=== PATIENT | female | born 1980 | race Caucasian/White ===

== ENCOUNTER 2019-05-08 19:35 | Emergency (ER) | payer MEDICAID ==
[~2019-05-08] VITALS: Ht 165.1 cm; Wt 131.0 kg
[~2019-05-08 19:35] MED LIST: AZIT250T PO; DIT5T PO; ONDA4TAB59 PO; ONDA4TAB6 PO; ONDA8TAB6 PO
[2019-05-08 19:58] LABS: URINE HCG POSITIVE (NEG)
[2019-05-08 20:00] LABS: CLARITY,URINE CLEAR (Clear); COLOR,URINE YELLOW (Yellow); GLUCOSE, URINE NEGATIVE (Neg); KETONES,URINE TRACE mg/dl (Neg); LEUKOCYTE ESTERASE ,URINE NEGATIVE (Neg); NITRITES, URINE NEGATIVE (Neg); OCCULT BLOOD,URINE NEGATIVE (Neg); PROTEIN,URINE NEGATIVE (Neg)
[2019-05-08 20:03] LABS: UA COLLECTION TYPE VOIDED
[2019-05-08] MEDS ORDERED: ondansetron/PF 4mg/2ml inj IV ONE ×2 (20:10→21:25)
[2019-05-08] MEDS ORDERED: morphine 4 MG/ML inj SYRINge IV PRN (20:10)
[2019-05-08] MEDS ORDERED: normal saline 1000ML IV soln IVB ONE (20:10)
[2019-05-08 20:52] LABS: BASOPHILS # (AUTO) 0.1 X10'3 (0-0.2); BASOPHILS % (AUTO) 0.8 % (0-1); EOSINOPHILS # (AUTO) 0.1 X10'3 (0-0.9); EOSINOPHILS % (AUTO) 0.8 % (0-6); HEMATOCRIT 36.4 % (35.0-45.0); LYMPHOCYTES # (AUTO) 2.4 X10'3 (1.1-4.8); LYMPHOCYTES % (AUTO) 20.1 % (21-51); MEAN CORPUSCULAR HEMOGLOBIN 26.4 PG (27.0-31.0); MEAN CORPUSCULAR HGB CONC 33.1 g/dL (33.0-36.5); MEAN CORPUSCULAR VOLUME 79.7 FL (78-98); MEAN PLATELET VOLUME 7.3 FL (7.4-10.4); MONOCYTES # (AUTO) 0.8 X10'3 (0-0.9); NEUTROPHILS # (AUTO) 8.4 X10'3 (1.8-7.7); NEUTROPHILS % (AUTO) 71.3 % (42-75); PLATELET COUNT 392 X10'3 (140-440); RED BLOOD COUNT 4.56 X10'6 (4.20-5.60); RED CELL DISTRIBUTION WIDTH 16.2 % (11.5-14.5); WHITE BLOOD COUNT 11.8 X10'3 (4.5-11.0)
[2019-05-08 21:01] LABS: ALANINE AMINOTRANSFERASE 17 U/L (12-78); ALBUMIN/GLOBULIN RATIO 0.7 (1.1-1.5); ALKALINE PHOSPHATASE 80 IU/L (46-116); ANION GAP 6 (8-16); ASPARTATE AMINO TRANSFERASE 16 U/L (10-37); BILIRUBIN,TOTAL 0.2 MG/DL (0.1-1.0); BLOOD UREA NITROGEN 13 MG/DL (7-18); BUN/CREATININE RATIO 10.5 (6.6-38.0); CALCIUM 9.2 MG/DL (8.5-10.1); CHLORIDE 103 MMOL/L (99-107); CREATININE 1.24 MG/DL (0.40-0.90); GLUCOSE 86 MG/DL (70-104); LIPASE 179 U/L (73-393); POTASSIUM 3.8 MMOL/L (3.5-5.1); SODIUM 136 MMOL/L (135-145); TOTAL CARBON DIOXIDE 26.9 MMOL/L (24-32); TOTAL PROTEIN 7.4 G/DL (6.4-8.2); eGFR 48 ML/MIN
[2019-05-08] MEDS ORDERED: HYDR-3965 PO (21:22)
[2019-05-08] MEDS ORDERED: morphine 4 MG/ML inj SYRINge IV ONE (21:25)
[2019-05-08] MEDS ORDERED: ONDA4TAB6 PO (22:03)
[2019-05-08 22:08] VITALS: BP 125/70
== END 2019-05-08 22:09 | disposition home or self-care (01) ==
LOC: ER 19:36
DX: O26.891 Other specified pregnancy related conditions, first trimester (principal); R10.9 Unspecified abdominal pain; J45.909 Unspecified asthma, uncomplicated; F41.9 Anxiety disorder, unspecified; F32.9 Major depressive disorder, single episode, unspecified; Z90.49 Acquired absence of other specified parts of digestive tract; Z98.890 Other specified postprocedural states; Z88.0 Allergy status to penicillin; Z88.1 Allergy status to other antibiotic agents; Z88.5 Allergy status to narcotic agent; Z88.8 Allergy status to other drugs, medicaments and biological substances; Z79.2 Long term (current) use of antibiotics; Z79.899 Other long term (current) drug therapy; Z87.442 Personal history of urinary calculi; Z93.6 Other artificial openings of urinary tract status; Z3A.09 9 weeks gestation of pregnancy
CPT/HCPCS: 36415; 80053; 81003; 81025; 83690; 85025; 96374; 96375; 96376; 99284; J2270; J2405; J7030

== ENCOUNTER 2020-12-30 13:56 | Emergency (ER) | payer MEDICAID ==
[~2020-12-30] VITALS: Ht 165.1 cm; Wt 168.0 kg
[2020-12-30 14:31] VITALS: BP 194/95
[2020-12-30 15:33] LABS: BASOPHILS # (AUTO) 0.1 X10'3 (0-0.2); EOSINOPHILS # (AUTO) 0.1 X10'3 (0-0.9); HEMATOCRIT 43.8 % (35.0-45.0); HEMOGLOBIN 14.7 g/dl (12.0-16.0); LYMPHOCYTES # (AUTO) 2.4 X10'3 (1.1-4.8); MEAN CORPUSCULAR HEMOGLOBIN 28.5 PG (27.0-31.0); MEAN CORPUSCULAR HGB CONC 33.5 g/dL (33.0-36.5); MEAN PLATELET VOLUME 6.9 FL (7.4-10.4); MONOCYTES # (AUTO) 0.5 X10'3 (0-0.9); MONOCYTES % (AUTO) 8.1 % (2-12); NEUTROPHILS # (AUTO) 3.7 X10'3 (1.8-7.7); NEUTROPHILS % (AUTO) 53.9 % (42-75); PLATELET COUNT 358 X10'3 (140-440); RED BLOOD COUNT 5.16 X10'6 (4.20-5.60); RED CELL DISTRIBUTION WIDTH 15.1 % (11.5-14.5); WHITE BLOOD COUNT 6.8 X10'3 (4.5-11.0)
[2020-12-30] MEDS ORDERED: acetaminophen 325mg tablet PO ONE (15:55)
[2020-12-30 15:57] LABS: ALANINE AMINOTRANSFERASE 40 U/L (12-78); ALBUMIN 3.5 G/DL (3.4-5.0); ALBUMIN/GLOBULIN RATIO 0.9 (1.1-1.5); ALKALINE PHOSPHATASE 92 IU/L (46-116); ANION GAP 8 (8-16); ASPARTATE AMINO TRANSFERASE 29 U/L (10-37); BILIRUBIN,TOTAL 0.4 MG/DL (0.1-1.0); BLOOD UREA NITROGEN 13 MG/DL (7-18); BUN/CREATININE RATIO 10.7 (6.6-38.0); CALCIUM 9.2 MG/DL (8.5-10.1); CHLORIDE 106 MMOL/L (99-107); CREATININE 1.21 MG/DL (0.40-0.90); GLUCOSE 107 MG/DL (70-104); LIPASE 125 U/L (73-393); POTASSIUM 4.2 MMOL/L (3.5-5.1); SODIUM 141 MMOL/L (135-145); TOTAL CARBON DIOXIDE 27.4 MMOL/L (24-32); TOTAL PROTEIN 7.6 G/DL (6.4-8.2); eGFR 49 ML/MIN
[2020-12-30 16:05] LABS: UA COLLECTION TYPE CLN CATCH MIDSTREAM
[2020-12-30 16:06] LABS: CLARITY,URINE CLOUDY (Clear); COLOR,URINE YELLOW (Yellow); GLUCOSE, URINE NEGATIVE (Neg); PROTEIN,URINE 30 mg/dl (Neg)
[2020-12-30 16:07] LABS: KETONES,URINE NEGATIVE (Neg); LEUKOCYTE ESTERASE ,URINE SMALL (Neg); NITRITES, URINE NEGATIVE (Neg); OCCULT BLOOD,URINE LARGE (Neg); UROBILINOGEN,URINE 0.2 E.U/dL (0.2-1.0)
[2020-12-30 16:19] LABS: URINE HCG NEGATIVE (NEG)
--- NOTE | 2020-12-30 16:24 | NUR ---
MEDICAL RECORD RELEASE FAXED TO [facility]
[2020-12-30 16:31] LABS: RBC,URINE 50-100 /HPF (0-2); WBC,URINE TNTC /HPF (0-4)
[2020-12-30 16:32] LABS: MUCUS STRANDS FEW /LPF (Neg); SQUAMOUS EPITHELIAL CELL,UR MANY /LPF (FEW); TRANSITIONAL EPI CELLS,URINE FEW /HPF
[2020-12-30 16:37] LABS: AMORPHOUS URATES 1+; BACTERIA,URINE 1+ /HPF (Neg)
[2020-12-30] MEDS ORDERED: HYDROcodone/acetaminophen 5mg/325mg tablet PO ONE (17:40)
[2020-12-30] MEDS ORDERED: ondansetron 4mg rapidly disintigrating tab PO ONE (17:50)
[2020-12-30] MEDS ORDERED: LEVO750T46 PO (19:30)
== END 2020-12-30 19:45 | disposition home or self-care (01) ==
LOC: ER 13:57
DX: N10 Acute pyelonephritis (principal); Z95.5 Presence of coronary angioplasty implant and graft; Z87.440 Personal history of urinary (tract) infections; J45.909 Unspecified asthma, uncomplicated; Z87.01 Personal history of pneumonia (recurrent); Z87.442 Personal history of urinary calculi; Z90.49 Acquired absence of other specified parts of digestive tract; Z98.891 History of uterine scar from previous surgery; Z88.0 Allergy status to penicillin; Z88.1 Allergy status to other antibiotic agents; Z88.5 Allergy status to narcotic agent; Z88.6 Allergy status to analgesic agent; Z91.041 Radiographic dye allergy status; Z88.8 Allergy status to other drugs, medicaments and biological substances; Z79.2 Long term (current) use of antibiotics; Z79.899 Other long term (current) drug therapy
CPT/HCPCS: 36415; 74176; 80053; 81001; 81025; 83690; 85025; 99284

== ENCOUNTER 2021-01-25 09:33 | Emergency (ER) | payer MEDICAID ==
[~2021-01-25] VITALS: Ht 162.6 cm; Wt 159.1 kg
[2021-01-25 09:36] VITALS: BP 206/126
[2021-01-25] MEDS ORDERED: TETanus/Pertussis (Acell)/Diphther VAC/PF (Tdap-Adult) 0.5ml syringe IMVAC ONE (15:10)
[2021-01-25] MEDS ORDERED: HYDROcodone/acetaminophen 5mg/325mg tablet PO ONE (15:15)
[2021-01-25] MEDS ORDERED: CEPH250T PO (15:49)
[2021-01-25] MEDS ORDERED: HYDR-3965 PO (15:49)
== END 2021-01-25 16:33 | disposition home or self-care (01) ==
LOC: ER 09:34
DX: L03.011 Cellulitis of right finger (principal); M79.644 Pain in right finger(s); J45.909 Unspecified asthma, uncomplicated; F41.9 Anxiety disorder, unspecified; F32.9 Major depressive disorder, single episode, unspecified; Z20.3 Contact with and (suspected) exposure to rabies; Z87.01 Personal history of pneumonia (recurrent); Z87.442 Personal history of urinary calculi; Z87.440 Personal history of urinary (tract) infections; Z90.49 Acquired absence of other specified parts of digestive tract; Z98.890 Other specified postprocedural states; Z88.0 Allergy status to penicillin; Z88.1 Allergy status to other antibiotic agents; Z88.8 Allergy status to other drugs, medicaments and biological substances; Z79.2 Long term (current) use of antibiotics; Z79.899 Other long term (current) drug therapy
CPT/HCPCS: 10060; 90471; 90715; 99283

== ENCOUNTER 2021-09-25 14:22 | Emergency (ER) | payer MEDICAID ==
[~2021-09-25] VITALS: Ht 165.1 cm; Wt 159.1 kg
[2021-09-25 15:41] LABS: BASOPHILS % (AUTO) 0.5 % (0-1); EOSINOPHILS # (AUTO) 0.1 X10'3 (0-0.9); EOSINOPHILS % (AUTO) 1.2 % (0-6); HEMATOCRIT 38.9 % (35.0-45.0); HEMOGLOBIN 12.9 g/dl (12.0-16.0); LYMPHOCYTES # (AUTO) 1.3 X10'3 (1.1-4.8); LYMPHOCYTES % (AUTO) 16.1 % (21-51); MEAN CORPUSCULAR HEMOGLOBIN 28.8 PG (27.0-31.0); MEAN CORPUSCULAR HGB CONC 33.2 g/dL (33.0-36.5); MEAN CORPUSCULAR VOLUME 86.5 FL (78-98); MEAN PLATELET VOLUME 7.3 FL (7.4-10.4); MONOCYTES # (AUTO) 0.5 X10'3 (0-0.9); MONOCYTES % (AUTO) 5.9 % (2-12); NEUTROPHILS # (AUTO) 6.3 X10'3 (1.8-7.7); NEUTROPHILS % (AUTO) 76.3 % (42-75); PLATELET COUNT 317 X10'3 (140-440); RED BLOOD COUNT 4.49 X10'6 (4.20-5.60); RED CELL DISTRIBUTION WIDTH 14.6 % (11.5-14.5); WHITE BLOOD COUNT 8.3 X10'3 (4.5-11.0)
[2021-09-25 15:57] LABS: ALANINE AMINOTRANSFERASE 32 U/L (12-78); ALBUMIN 2.9 G/DL (3.4-5.0); ALBUMIN/GLOBULIN RATIO 0.8 (1.1-1.5); ALKALINE PHOSPHATASE 85 IU/L (46-116); ANION GAP 7 (8-16); ASPARTATE AMINO TRANSFERASE 26 U/L (10-37); BILIRUBIN,TOTAL 0.6 MG/DL (0.1-1.0); BLOOD UREA NITROGEN 11 MG/DL (7-18); CALCIUM 8.6 MG/DL (8.5-10.1); CHLORIDE 107 MMOL/L (99-107); GLUCOSE 100 MG/DL (70-104); POTASSIUM 3.5 MMOL/L (3.5-5.1); SODIUM 142 MMOL/L (135-145); TOTAL PROTEIN 6.7 G/DL (6.4-8.2); eGFR 61 ML/MIN
[2021-09-25] MEDS: dexamethasone sod phosphate 10mg/ml inj IV STA (16:27)
[2021-09-25] MEDS: diphenhydrAMINE 50 mg/ml inj IV ONE (17:06)
[2021-09-25 18:58] VITALS: BP 168/88
[2021-09-25] MEDS: acetaminophen 325mg tablet PO ONE (19:05)
[2021-09-25] MEDS: furosemide 10 MG/1 ML 10ml inj IV ONE (19:06)
[2021-09-25] MEDS ORDERED: BUDE180A INH (19:22)
[2021-09-25] MEDS ORDERED: ALBU6.7H9 INH (19:22)
[2021-09-25] MEDS ORDERED: FURO-150 PO (19:22)
[2021-09-25] MEDS ORDERED: POTA-192 PO (19:22)
--- NOTE | 2021-09-25 19:37 | NUR ---
PATIENT STATES THAT HER AUNT IS CURRENTLY OUT OF TOWN AND THAT HER AIR CONDITIONING IS WAITING TO BE FIXED AT HER HOME IN WHICH SHE DOES CURRENTLY HAVE ACCESS TO ALONG WITH THE USE OF A WORKING VEHICLE. PATIENT HAS BEEN ADVISED BY PHYSICIAN AND NURSE THAT SHE DOES NOT REQUIRE ADMISSION TO THE HOSPITAL AND THAT SHE HAS SAFE TRANSPORTATION AND HOUSING AVAILABLE FOR DISCHARGE PER WHAT SHE HAS VERBALIZED TO STAFF.
[2021-09-26] MEDS ORDERED: FURO-150 PO ×3 (23:28→23:31)
[2021-09-26] MEDS ORDERED: ALBU6.7H9 INH ×3 (23:28→23:31)
[2021-09-26] MEDS ORDERED: POTA-192 PO ×3 (23:28→23:31)
[2021-09-26] MEDS ORDERED: BUDE180A INH ×3 (23:28→23:31)
--- NOTE | 2021-09-27 12:25 | NUR ---
PT'S SIGNIFICANT OTHER CALLED STATING THAT THE RX x4 WAS NOT RECEIVED BY THE PHARMACY AFTER HER VISIT ON 09/26. CONSULTED DR BARRIENTOS AND RX WAS CALLED INTO [facility]. SEE PROVIDER NOTES FOR PRESCRIBED MEDICATIONS CALLED IN.
== END 2021-09-25 20:41 | disposition home or self-care (01) ==
LOC: ER 14:24
DX: I50.9 Heart failure, unspecified (principal); E66.2 Morbid (severe) obesity with alveolar hypoventilation; U09.9 Post COVID-19 condition, unspecified; R42 Dizziness and giddiness; J45.909 Unspecified asthma, uncomplicated; F41.9 Anxiety disorder, unspecified; F32.A Depression, unspecified; Z87.01 Personal history of pneumonia (recurrent); Z87.442 Personal history of urinary calculi; Z87.440 Personal history of urinary (tract) infections; Z90.49 Acquired absence of other specified parts of digestive tract; Z98.890 Other specified postprocedural states; Z88.0 Allergy status to penicillin; Z88.1 Allergy status to other antibiotic agents; Z88.8 Allergy status to other drugs, medicaments and biological substances; Z79.2 Long term (current) use of antibiotics; Z79.899 Other long term (current) drug therapy
CPT/HCPCS: 36415; 71045; 71275; 80053; 83605; 83880; 84484; 85025; 87040; 93005; 96374; 96375; 99285; J1100; J1200; J1940